=== PATIENT | female | born 1970 | race Two or more races ===

== ENCOUNTER 2019-08-16 19:48 | Emergency (ER) | payer BC ==
[~2019-08-16] VITALS: Ht 152.4 cm; Wt 68.0 kg
[2019-08-16 19:50] VITALS: BP_SYST 157
--- NOTE | 2019-08-16 19:50 | NUR ---
Placed in room 3 . Placed on personnel monitor, blood pressure machine and pulse oximeter. To gown for exam. Side rails up. Report given to ALAYNA GOMEZ.
[2019-08-16] MEDS ORDERED: ASPIRIN 81 MG TAB.CHEW PO ONE (20:00)
--- NOTE | 2019-08-16 20:11 | NUR ---
# 20 gauge angiocath placed to LAC. Use of asceptic technique. Opsite placed over site. Blood return noted. Blood for lab drawn from site. Flushed with 10 cc of normal saline. No evidence of infiltration noted. Patient tolerated well.
--- NOTE | 2019-08-16 20:15 | NUR ---
ER Dr. Pena at bedside examining patient.
--- NOTE | 2019-08-16 20:15 | NUR ---
Patient is alert and oriented x4. Patient complains of chest pain that started about an hour ago and lasted 5 to 10 mins. Patient was folding grocery bags when the chest pain started. Patient states her chest pain was a "sharp pain in the middle of her chest". Patient denies her chest pain radiating to her jaw or shoulder. Patient denies nausea, vomiting, fever, and shortness of breath. Patient is not experiencing chest pain at the moment, 0 out 10. Patient does not have any past medical history and is not taking any medications. Patient is laying comfortably in bed, will continue to monitor.
[2019-08-16 20:29] LABS: CALCIUM 8.9 mg/dL (8.4-11.0); CREATININE 0.88 mg/dL (0.55-1.30); POTASSIUM 3.3 mmol/L (3.5-5.1)
[2019-08-16 20:32] LABS: BASOPHILS # (AUTO) 0.2 K/uL (0.0-0.2); BASOPHILS % (AUTO) 2.9 % (0.0-2.0); EOSINOPHILS % (AUTO) 0.5 % (0.0-4.0); HEMATOCRIT 44.3 % (36-48); HEMOGLOBIN 15.3 g/dL (12.0-16.0); LYMPHOCYTES % (AUTO) 25.3 % (20.5-51.5); MEAN CORPUSCULAR HEMOGLOBIN 32 pg (27-31); MEAN CORPUSCULAR HGB CONC 35 % (32-36); MEAN CORPUSCULAR VOLUME 94 fL (79.0-98.0); MONOCYTES # (AUTO) 0.6 K/uL (0.0-1.0); NEUTROPHILS # (AUTO) 5.2 K/uL (1.8-7.7); NEUTROPHILS % (AUTO) 64.3 % (40.0-70.0); PLATELET COUNT (AUTO) 280 K/uL (130-430); RED BLOOD CELL COUNT(AUTO) 4.71 MIL/uL (4.2-6.2); RED CELL DISTRIBUTION WIDTH 12.9 % (9.0-15.0)
[2019-08-16 20:36] LABS: ALBUMIN 3.9 g/dL (3.4-4.8); TOTAL BILIRUBIN 1.1 mg/dL (0.0-1.0)
[2019-08-16] MEDS ORDERED: MAGNESIUM SULFATE 50 ML IV ONE (21:15)
[2019-08-16] MEDS ORDERED: POTASSIUM CHLORIDE 10 MEQ TAB.PRT.SR PO ONE (21:15)
[2019-08-16] MEDS ORDERED: POTASSIUM CHLORIDE 20 MEQ TAB.PRT.SR PO ONE (21:15)
--- NOTE | 2019-08-16 21:23 | NUR ---
Verbal orders received from Dr. Pena to administer Mag Sulfate 2gm/50ml over 1 hour instead of 2 hours at 25ml/hr. Mag Sulfate is running at 50ml/hr.
[2019-08-16 21:26] LABS: THYROID STIMULATING HORMONE 1.62 uIu/mL (0.36-3.74)
[2019-08-16 23:18] VITALS: BP_SYST 129
--- NOTE | 2019-08-16 23:18 | NUR ---
Patient given written and verbal discharge instructions and verbalizes understanding. ER MD discussed with patient the results and treatment provided. Patient in stable condition. ID arm band removed. IV catheter removed intact and dressing applied, no active bleeding. Patient educated on pain management and to follow up with PMD. Pain Scale 0 OUT 10. Opportunity for questions provided and answered.
== END 2019-08-16 23:18 | disposition home or self-care (01) ==
LOC: SED 19:48
DX: E87.6 Hypokalemia (principal); R07.89 Other chest pain; R05 Cough
CPT/HCPCS: 36415; 71045; 80053; 82550; 83880; 84439; 84443; 84484; 85025; 85379; 93005; 96365; 99285; J3475